=== PATIENT | male | born 1975 ===

== ENCOUNTER 2018-07-09 14:23 | Emergency (ER) | payer SELFPAY ==
[~2018-07-09] VITALS: Ht 167.6 cm; Wt 75.0 kg
[~2018-07-09 14:23] MED LIST: ATEN25TA PO
[2018-07-09 14:29] VITALS: BP 154/103
--- NOTE | 2018-07-09 14:38 | NUR ---
PT BIBA FOR GLF IN [place], THIS PM. PT SLIPPED ON SOAP. PT DENIES SYNCOPE/NEAR SYNCOPE. DENIES HEADACHE. PT C/O RIGHT LOWER BACK PAIN SINCE FALL. PT ATTACHED TO BP AND SPO2 MONITORS, CALL LIGHT IN REACH. AWAITING MD AND ORDERS.
--- NOTE | 2018-07-09 15:29 | NUR ---
PIV (PLACED MACHINE CARTON MARKER) DC'D WITH TIP INTACT. FSBS MACHINE CARTON MARKER 58, FSBS RECHECKED BY THIS RN WAS 90. PT SEEN BY SANDEEP MENDEZ, PT INSTRUCTED TO AWAIT DC PAPERWORK AND INSTRUCTIONS. PT REFUSED AND LEFT BEFORE DC PAPERWORK WAS READY. PT SEEN AMBULATING OUT OF DEPARTMENT WITH STEADY GAIT. ANIAN AT DC.
== END 2018-07-09 15:30 | disposition home or self-care (01) ==
LOC: ED 15:24
DX: G89.11 Acute pain due to trauma (principal); M54.5 Low back pain; Z87.891 Personal history of nicotine dependence; W01.0XXA Fall on same level from slipping, tripping and stumbling without subsequent striking against object, initial encounter; Y93.89 Activity, other specified; Y92.009 Unspecified place in unspecified non-institutional (private) residence as the place of occurrence of the external cause; Y99.8 Other external cause status
CPT/HCPCS: 99283

== ENCOUNTER 2018-10-19 13:50 | Emergency (ER) | payer MEDICAID ==
[~2018-10-19] VITALS: Ht 167.6 cm; Wt 62.4 kg
--- NOTE | 2018-10-19 14:11 | NUR ---
PT WALKED TO EYE ROOM 20 WITH STEADY GAIT. PT LAID ON FLOOR. ADVISED PT TO REMAIN IN EYE CHAIR, REPOSITIONED CHAIR FOR COMFORT. PT THEN GOT UP FROM CHAIR AND STATED HE NEEDED TO SIGN RELEASE FORMS FOR MEDICAL RECORDS. PT APPEARS AGITATED. EDUCATED ON PROCESS OF ED AND TO WAIT TO SEE ERP FOR ORDERS AND REQUEST OF DOCUMENTS. SECURITY TO ROOM FOR SAFETY. PT BACK TO CHAIR.
[2018-10-19 15:01] VITALS: BP 154/107
--- NOTE | 2018-10-19 15:01 | NUR ---
PT CALM AND COOPERATIVE AT THIS TIME. NADN. ALL CONCERNS ADRESSED.
--- NOTE | 2018-10-19 15:29 | NUR ---
ATTEMPT TO MEDICATE PT, PT REFUSED TRAMADOL AFTER MEDICATION WAS IN HAND AND OPENED. PT STATED, "I CAN'T TAKE THAT. IT DOESN'T DO SHIT." AWARE.
[2018-10-19] MEDS ORDERED: HYDROcodone/APAP 5/325 TABLET PO ONE (15:30)
--- NOTE | 2018-10-19 15:56 | NUR ---
PT STARTED YELLING "I WANTED SOME FUCKING PERCOCET" INTO HALLWAY. THIS RN APPROACHED ROOM, PT YELLING AGGRESSIVELY WITH DR. BAUGH. DR. BAUGH ATTEMPTING TO EXPLAIN PLAN OF CARE TO PT, PT CONTINUING TO USE PROFANITY AND AGGRESSIVE LANGUAGE WITH STAFF. DR. BAUGH STATED HE WOULD GET PAPERWORK READY FOR PT AND PT STATED "I DON'T WANT YOUR FUCKING PAPERWORK I'LL WALK THE FUCK OUT OF THIS PLACE MYSELF." PT AMBULATORY WITH STEADY GAIT TO DISCHARGE DESK, PT REFUSING TO WAIT FOR PAPERWORK.
== END 2018-10-19 16:00 | disposition left against medical advice (07) ==
LOC: ED 15:54
DX: H20.00 Unspecified acute and subacute iridocyclitis (principal)
CPT/HCPCS: 99283